=== PATIENT | male | born 1965 | race African-American/Black ===

== ENCOUNTER 2024-05-14 11:39 | Outpatient (CLI) | payer OTHER | END 2024-05-14 11:40 | disposition home or self-care (01) | LOC: SCSRAD 11:39 | PROVIDERS: ATTEND Nurse Practitioner Family | DX: S99.912A Unspecified injury of left ankle, initial encounter (principal); M79.672 Pain in left foot; M79.89 Other specified soft tissue disorders; M25.772 Osteophyte, left ankle; M76.892 Other specified enthesopathies of left lower limb, excluding foot; I99.8 Other disorder of circulatory system ==